=== PATIENT | female | born 1990 | race Two or more races ===

== ENCOUNTER 2020-07-30 18:21 | Emergency (ER) | payer SELFPAY ==
[~2020-07-30] VITALS: Ht 157.5 cm; Wt 55.0 kg
[2020-07-30 20:43] LABS: BASOPHILS % 1.9 % (0.0-2.0); EOSINOPHILS % 0.5 % (0.0-5.0); HEMATOCRIT. 38.5 % (36.0-48.0); HEMOGLOBIN. 12.7 g/dL (12.0-16.0); LYMPHOCYTES % 27.9 % (20.0-50.0); MEAN CORPUSCULAR HEMOGLOBIN 29.9 pg (28.0-32.0); MEAN CORPUSCULAR VOLUME 90.6 fL (81.0-99.0); MEAN PLATELET VOLUME 6.6 fl (7.4-10.4); MONOCYTES % 8.8 % (2.0-8.0); NEUTROPHILS % 60.9 % (40.0-76.0); PLATELET 367 x1000/uL (130-400); RED BLOOD CELL COUNT 4.25 mill/uL (4.2-5.4); RED CELL DISTRIBUTION WIDTH 13.4 % (11.6-14.6)
[2020-07-30 20:46] LABS: CHLORIDE 104 mEq/L (98-107)
[2020-07-30 20:51] LABS: HCG SCREEN NEGATIVE
[2020-07-30 21:01] LABS: ETHANOL BLOOD 306 mg/dL
[2020-07-30] MEDS ORDERED: FOLIC ACID 1 MG, THIAMINE HCL 100 MG, MVI, ADULT NO.1 10 ML in DEXTROSE 5% WATER 1,000 ML IV ONE (22:00)
[2020-07-30] MEDS ORDERED: ONDANSETRON HCL 4MG/2ML INJ IV ONE (23:45)
[2020-07-30] MEDS ORDERED: POTASSIUM CHLORIDE 20MEQ TABLET SR PO ONE (23:45)
[2020-07-30] MEDS ORDERED: POTA20TA82 MT (23:47)
[2020-07-31] MEDS ORDERED: ONDANSETRON HCL 4MG/2ML INJ IV ONE (00:30)
[2020-07-31 06:36] VITALS: BP 110/74
== END 2020-07-31 07:35 | disposition home or self-care (01) ==
LOC: ER 18:21
DX: T51.0X1A Toxic effect of ethanol, accidental (unintentional), initial encounter (principal); G92 Toxic encephalopathy; R11.2 Nausea with vomiting, unspecified; Y92.520 Airport as the place of occurrence of the external cause
CPT/HCPCS: 36415; 70450; 80053; 80320; 82962; 84703; 85025; 93005; 96365; 96375; 99285; J2405; J3411; J3490; J7070; G0480